=== PATIENT | female | born 1965 | race African-American/Black ===

== ENCOUNTER 2017-05-28 13:02 | Emergency (ER) | payer OTHER ==
[~2017-05-28] VITALS: Ht 160 cm; Wt 108.9 kg
[~2017-05-28 13:02] MED LIST: AMLODIPINE BESYL5 M1 PO; CYCLOBENZAPRINE10 M1 PO; GABAPENTIN300 M2 PO; LISINOPRIL30 M1 PO; MOBIC15 M1 PO; NEXIUM40 M1 PO; PERCOCET 5-3251 EACH PO
[2017-05-28 14:07] LABS: ABSOLUTE BASOPHIL COUNT 0.1 /CUMM (0.0-0.2); ABSOLUTE EOSINOPHIL COUNT 0.2 /CUMM (0.0-0.7); ABSOLUTE GRANULOCYTE CT 5.7 /CUMM (1.4-6.5); ABSOLUTE LYMPH COUNT 5.1 /CUMM (1.2-3.4); ABSOLUTE MONOCYTE COUNT 0.3 /CUMM (0.10-0.60); BASOPHIL % 0.9 % (0.0-2.0); EOSINOPHIL % 1.6 % (0-5); GRANULOCYTE % 49.9 % (42.2-75.2); HEMATOCRIT 41.2 % (37-47); MEAN CORPUSCULAR HGB 30.7 PG (27.0-31.0); MEAN CORPUSCULAR HGB CONC 32.6 G/DL (33.0-37.0); MEAN CORPUSCULAR VOLUME 94.1 FL (81.0-99.0); MEAN PLATELET VOLUME 7.8 FL (7.4-10.4); PLATELET COUNT 353 /CUMM (130-400); RED BLOOD CELL CT 4.38 /CUMM (4.20-5.40); WHITE BLOOD CELL COUNT 11.4 /CUMM (4.8-10.8)
--- NOTE | 2017-05-28 14:19 | ED GENERAL ADULT ---
History of Present Illness General Chief Complaint: General Adult Stated Complaint: "PAIN IN MY WHOLE BODY" X5 DAYS Source: patient Exam Limitations: no limitations Vital Signs & Intake/Output Vital Signs & Intake/Output Vital Signs Date Time Temp Pulse Resp B/P B/P Pulse O2 O2 Flow FiO2 Mean Ox Delivery Rate 05/28 1712 97.8 88 18 159/86 96 Room Air 05/28 1500 98.0 88 20 139/68 98 Room Air 05/28 1314 94 20 132/84 97 Room Air Allergies Coded Allergies: Sulfa (Sulfonamide Antibiotics) (RASH 03/20/17) ciprofloxacin (From CIPRO) (UNKNOWN 03/20/17) clarithromycin (UNKNOWN 03/20/17) erythromycin base (RASH 03/20/17) promethazine (VOMITING 03/20/17) Reconcile Medications Amlodipine Besylate 5 MG TABLET 1 TAB PO DAILY HEART (Reported) Cyclobenzaprine HCl 10 MG TABLET 1 TAB PO QPM PRN muscle spasm Esomeprazole (Nexium) 40 MG CAPSULE.DR 1 CAP PO DAILY GI (Reported) Gabapentin 300 MG CAPSULE 1 CAP PO TID UNKNOWN (Reported) Ibuprofen 800 MG TABLET 1 TAB PO TID PRN pain Ibuprofen 800 MG TABLET 1 TAB PO TID PRN PAIN Lisinopril 30 MG TABLET 1 TAB PO DAILY HEART (Reported) Meloxicam (Mobic) 15 MG TABLET 1 TAB PO DAILY PRN pain Oxycodone HCl/Acetaminophen (Percocet 5-325 MG Tablet) 5 MG-325 MG TABLET 1 TAB PO 4 TIMES/DAY PRN pain Oxycodone HCl/Acetaminophen (Percocet 5-325 MG Tablet) 5 MG-325 MG TABLET 1 TAB PO 4 TIMES/DAY PRN PAIN Oxycodone HCl/Acetaminophen (Percocet 5-325 MG Tablet) 5 MG-325 MG TABLET 1 TAB PO BID PRN pain Triage Note: PT TO ED C/O CHEST PAIN RADIATING TO BACK X 6 DAYS. WAS INTERMITTENT, BUT NOW CONSTANT. DENIES N/V/D. TO EKG [facility]. Triage Nurses Notes Reviewed? yes Onset: Abrupt Duration: week(s): (1), constant, continues in ED, getting worse Timing: recent history Injury Environment: home Severity: moderate, severe Severity Numbers: 9 No Modifying Factors: none Associated Symptoms: back pain, chest pain LMP (ages 10-50): unknown : No Patient currently breastfeeds: No HPI: 51-year-old female has medical history of chronic BACK pain presents for evaluation of chest pain and back pain. Patient states symptoms started about one week ago and have been getting worse. The pain is located diffusely in her chest and bilateral shoulders and radiates to her entire back. The pain is worse with movement or laying flat on her back. There was no trauma or known trigger event. The pain has gradually gotten worse. She's been taking Tylenol without any improvement. Patient states she has had this on several occasions in the past but usually not this bad. No shortness of breath, numbness, tingling, abdominal pain, nausea, vomiting, diarrhea, fevers, coughing, hemoptysis, lower extremity edema. No recent surgeries or traumas. No history of DVT/PE. (Steven Mancuso) Past History Travel History Traveled to [place] past 21 day No Medical History Any Pertinent Medical History? 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 No (Steven Mancuso) Review of Systems Review of Systems Constitutional: Reports: no symptoms. EENTM: Reports: no symptoms. Respiratory: Reports: no symptoms. Cardiovascular: Reports: chest pain. GI: Reports: no symptoms. Genitourinary: Reports: no symptoms. Musculoskeletal: Reports: see HPI, back pain, muscle pain, muscle stiffness. Skin: Reports: no symptoms. Neurological/Psychological: Reports: no symptoms. Hematologic/Endocrine: Reports: no symptoms. Immunologic/Allergic: Reports: no symptoms. All Other Systems: Reviewed and Negative (Steven Mancuso) Physical Exam Physical Exam General Appearance: well developed/nourished, alert, awake, moderate distress Head: atraumatic, normal appearance Eyes: Bilateral: normal appearance, PERRL, EOMI. Ears, Nose, Throat: normal pharynx, normal ENT inspection, hearing grossly normal Neck: normal inspection, supple, full range of motion Respiratory: normal breath sounds, no respiratory distress, lungs clear, CHEST WALL IS DIFFUSELY TENDER TO PALPATION. nO BRUISING SWELLING OR ABRASIONS Cardiovascular: regular rate/rhythm, normal peripheral pulses Peripheral Pulses: 2+ radial (R), 2+ radial (L) Gastrointestinal: normal bowel sounds, soft, non-tender, no organomegaly Back: normal inspection, normal range of motion, vertebral tenderness, THORACIC AND LUMBAR SPINE AND PARASPINOUS MUSCLES TENDER TO PALPATION BILATERALLY. nO STEP-OFFS OR DEFORMITIES. nO BRUISING SWELLING OR ABRASIONS. nO RASHES Extremities: normal inspection, normal range of motion, no edema, PAIN WITH RANGE OF MOTION OF THE BILATERAL UPPER EXTREMITIES. nO JOINT SWELLING OF TRAUMA. NO LOWER EXTREMITY EDEMA Core Measures ACS in differential dx? No CVA/TIA Diagnosis: No Sepsis Present: No Sepsis Focused Exam Completed? No (Carlos MELCHOR,Steven) Progress Differential Diagnoses I considered the following diagnoses in my evaluation of the patient: [Muscle spasm, osteoarthritis, acute on chronic low back pain, aortic dissection, pancreatitis, peptic ulcer disease, fracture, compression fracture] Plan of Care: Orders Procedure Date/time Status Add-on Test (ER Only) 05/28 1422 Active LIPASE 05/28 1325 Complete TROPONIN LEVEL 05/28 1324 Complete D-DIMER 05/28 1324 Complete COMPREHENSIVE METABOLIC PANEL 05/28 1324 Complete CBC WITHOUT DIFFERENTIAL 05/28 1324 Complete EKG 05/28 1316 Active Laboratory Tests 05/28/17 1400: Lipase 99 05/28/17 1400: Anion Gap 14, Estimated GFR > 60, BUN/Creatinine Ratio 12.2, Glucose 98, Calcium 9.3, Total Bilirubin 0.2, AST 22, ALT 31, Alkaline Phosphatase 115, Troponin I < 0.01, Total Protein 8.1, Albumin 4.4, Globulin 3.7, Albumin/Globulin Ratio 1.2, CBC w Diff MAN DIFF ORDERED, RBC 4.38, MCV 94.1, MCH 30.7, MCHC 32.6 L, RDW 14.0, MPV 7.8, Gran % 49.9, Lymphocytes % 44.9, Monocytes % 2.7, Eosinophils % 1.6, Basophils % 0.9, Absolute Granulocytes 5.7, Absolute Lymphocytes 5.1 H, Absolute Monocytes 0.3, Absolute Eosinophils 0.2, Absolute Basophils 0.1, Normocytic RBCs VERIFIED, Normochromic RBCs VERIFIED 05/28/17 1324: D-Dimer High Sensitivty < 200 Microbiology 05/28 1310 NASOPHARYN: Influenza Virus A & B Rapid Smear - CAN Cancelled: Cancelled via OE: Per MD Decision Patient seen and evaluated. She is reporting chest pain radiating to her back. Pain is very reproducible with range of motion and palpation of the chest and back. Patient states she has had this before in the past. She appears to be significantly uncomfortable unable to lay flat on her back. She has equal pulses bilaterally. She is not anticoagulated. We'll check basic labs and a CTA of the chest to rule out dissection and PE. Patient medicated with Toradol and Percocet here. CTA is negative. Patient is feeling much better after medications. She is able to lay flat on her back and walk to the bathroom without difficulty. Blood work does not show any significant acute findings. EKG is stable troponin and d- dimer negative. Treated for musculoskeletal back and chest pain with Percocet and ibuprofen and Tylenol. Advised rest and avoid excessive physical activity or lifting or bending. Patient can follow-up with primary care as soon as possible. Discussed return precautions patient is nontoxic-appearing and agrees the plan Diagnostic Imaging: Viewed by Me: CT Scan. Discussed w/RAD: CT Scan. Radiology Impression: PATIENT: NEPTALI MINOR PRESENT AGE: 51 PATIENT ACCOUNT NO: [id number] : 63 LOCATION: [facility] ORDERING PHYSICIAN: Steven MELCHOR SERVICE DATE: 05/28/17958 EXAM TYPE: CAT - CTA CHEST-AORTIC DISSECTION EXAMINATION: CT ANGIOGRAM CHEST CLINICAL INFORMATION: Chest pain radiating to back. COMPARISON: Chest radiographs dated 03/20/2017. TECHNIQUE: Multiple axial images were obtained through the chest after the administration of 120 mL of intravenous Optiray 350. Sagittal and coronal reformatted images are submitted. DLP: 1608.84 mGy-cm. FINDINGS: VASCULAR: 1. Ascending thoracic aorta: Normal. No aneurysm or dissection seen. 2. Thoracic aortic arch: Normal. No aneurysm or dissection seen. 3. Descending thoracic aorta: Normal. No aneurysm or dissection seen. 4. Mesenteric arteries: The celiac and superior mesenteric artery origins are normal. NON-VASCULAR: LUNGS: The lungs are clear with no evidence of inflammation or nodules. MEDIASTINUM: The mediastinum is normal. Central vascular structures are unremarkable. No hilar or mediastinal lymphadenopathy. PERICARDIUM/PLEURA: There is no significant effusion. No pleural mass or thickening. CHEST WALL/AXILLA: Unremarkable. UPPER ABDOMEN: There is hepatic steatosis. The adrenal glands are unremarkable. OSSEOUS STRUCTURES: Unremarkable. IMPRESSION: 1. No thoracic aortic aneurysm or dissection is seen. 2. The lungs appear clear. 3. No sizable mediastinal or hilar adenopathy is seen. 4. There is hepatic steatosis. DICTATED BY: Wesley Bautista MD DATE/TIME DICTATED:05/28/171614 SECURITY SCREENER: BLANK DATE/TIME TRANSCRIBED:05/28/171614 Initial ED EKG: normal sinus rhythm, LEFT ATRIAL ABN, NO ST OR T WAVE CHANGES (Steven Mancuso) Departure Departure Disposition: HOME OR SELF CARE Condition: Stable Clinical Impression Primary Impression: Thoracic back pain Qualifiers: Chronicity: acute Back pain laterality: bilateral Qualified Code: M54.6 - Pain in thoracic spine Referrals: Tanja KERNS,Jovani Rolon MD,Antolin (PCP/Family) Additional Instructions: Rest, avoid heavy lifting bending or excessive physical activity. Use ibuprofen 800 mg every 8 hours with food as needed for pain. Percocet for severe pain only this may cause drowsiness. Make a follow-up appointment with your primary care doctor and provided orthopedic doctor Jovani Agrawal MD as soon as possible. Monitor symptoms return with any concerns. Departure Forms: Customer Survey General Discharge Information Prescriptions: Current Visit Scripts Oxycodone HCl/Acetaminophen (Percocet 5-325 MG Tablet) 1 TAB PO 4 TIMES/DAY PRN pain #10 TAB Ibuprofen 1 TAB PO TID PRN pain #30 TAB Oxycodone HCl/Acetaminophen (Percocet 5-325 MG Tablet) 1 TAB PO 4 TIMES/DAY PRN PAIN #10 TAB Ibuprofen 1 TAB PO TID PRN PAIN #30 TAB (Steven Mancuso) PA/LAND ACQUISITION ANALYST Co-Sign Statement Statement: ED Attending supervision documentation- I saw and evaluated the patient. I have also reviewed all the pertinent lab results and diagnostic results. I agree with the findings and the plan of care as documented in the PA's/LAND ACQUISITION ANALYST's documentation. x I have reviewed the ED Record and agree with the PA's/LAND ACQUISITION ANALYST's documentation. [] Additions or exceptions (if any) to the PAs/LAND ACQUISITION ANALYST's note and plan are summarized below: [] (Torrie KERNS,Donte) Critical Care Note Critical Care Note Critical Care Time: non-applicable (Steven Mancuso)
--- NOTE | 2017-05-28 16:25 | CT SCAN REPORT ---
EXAMINATION: CT ANGIOGRAM CHEST CLINICAL INFORMATION: Chest pain radiating to back. COMPARISON: Chest radiographs dated 03/20/2017. TECHNIQUE: Multiple axial images were obtained through the chest after the administration of 120 mL of intravenous Optiray 350. Sagittal and coronal reformatted images are submitted. DLP: 1608.84 mGy-cm. FINDINGS: VASCULAR: 1. Ascending thoracic aorta: Normal. No aneurysm or dissection seen. 2. Thoracic aortic arch: Normal. No aneurysm or dissection seen. 3. Descending thoracic aorta: Normal. No aneurysm or dissection seen. 4. Mesenteric arteries: The celiac and superior mesenteric artery origins are normal. NON-VASCULAR: LUNGS: The lungs are clear with no evidence of inflammation or nodules. MEDIASTINUM: The mediastinum is normal. Central vascular structures are unremarkable. No hilar or mediastinal lymphadenopathy. PERICARDIUM/PLEURA: There is no significant effusion. No pleural mass or thickening. CHEST WALL/AXILLA: Unremarkable. UPPER ABDOMEN: There is hepatic steatosis. The adrenal glands are unremarkable. OSSEOUS STRUCTURES: Unremarkable. IMPRESSION: 1. No thoracic aortic aneurysm or dissection is seen. 2. The lungs appear clear. 3. No sizable mediastinal or hilar adenopathy is seen. 4. There is hepatic steatosis.
[2017-05-28] MEDS ORDERED: IBUPROFEN800 M1 PO ×2 (17:05→17:41)
[2017-05-28] MEDS ORDERED: PERCOCET 5-3251 EACH PO ×2 (17:05→17:41)
[2017-05-28 17:12] VITALS: BP 159/86
== END 2017-05-28 17:16 ==
LOC: ERH 13:02
PROVIDERS: Physician Assistant Medical
DX: M54.6 Pain in thoracic spine (principal)
CPT/HCPCS: 87804; 87804-59; 93005; 93010; 96372; J1885

== ENCOUNTER 2017-08-09 11:34 | Emergency (ER) | payer OTHER ==
[~2017-08-09] VITALS: Ht 160 cm; Wt 109.8 kg
[~2017-08-09 11:34] MED LIST changes: +IBUPROFEN800 M1 PO
[2017-08-09 16:16] VITALS: BP 131/72
--- NOTE | 2017-08-09 16:55 | ED GENERAL ADULT ---
History of Present Illness General Chief Complaint: Neck/Upper Back Pain/Injury Stated Complaint: NECK PAIN RADIATES DOWN BACK/SPINE TO LEGS Source: patient, family, old records Exam Limitations: no limitations Vital Signs & Intake/Output Vital Signs & Intake/Output Vital Signs Date Time Temp Pulse Resp B/P B/P Pulse O2 O2 Flow FiO2 Mean Ox Delivery Rate 08/09 1616 97.7 102 18 131/72 99 Room Air 08/09 1201 97.7 92 20 123/84 97 Room Air Allergies Coded Allergies: Sulfa (Sulfonamide Antibiotics) (RASH 03/20/17) ciprofloxacin (From CIPRO) (UNKNOWN 03/20/17) clarithromycin (UNKNOWN 03/20/17) erythromycin base (RASH 03/20/17) promethazine (VOMITING 03/20/17) Reconcile Medications Amlodipine Besylate 5 MG TABLET 1 TAB PO DAILY HEART (Reported) Cyclobenzaprine HCl 10 MG TABLET 1 TAB PO TID SPASMS Cyclobenzaprine HCl 5 MG TABLET 1 TAB PO TIDPRN PRN pain Cyclobenzaprine HCl 10 MG TABLET 1 TAB PO QPM PRN muscle spasm Esomeprazole (Nexium) 40 MG CAPSULE.DR 1 CAP PO DAILY GI (Reported) Gabapentin 300 MG CAPSULE 1 CAP PO TID UNKNOWN (Reported) Ibuprofen 800 MG TABLET 1 TAB PO TID PRN pain Ibuprofen 800 MG TABLET 1 TAB PO TID PRN PAIN Lisinopril 30 MG TABLET 1 TAB PO DAILY HEART (Reported) Meloxicam (Mobic) 15 MG TABLET 1 TAB PO DAILY PAIN Meloxicam (Mobic) 15 MG TABLET 1 TAB PO DAILY pain Meloxicam (Mobic) 15 MG TABLET 1 TAB PO DAILY PRN pain Oxycodone HCl/Acetaminophen (Percocet 5-325 MG Tablet) 5 MG-325 MG TABLET 1 TAB PO 4 TIMES/DAY PRN pain Oxycodone HCl/Acetaminophen (Percocet 5-325 MG Tablet) 5 MG-325 MG TABLET 1 TAB PO 4 TIMES/DAY PRN PAIN Oxycodone HCl/Acetaminophen (Percocet 5-325 MG Tablet) 5 MG-325 MG TABLET 1-2 TAB PO BID PAIN Oxycodone HCl/Acetaminophen (Percocet 5-325 MG Tablet) 5 MG-325 MG TABLET 1 TAB PO BID PRN pain Oxycodone HCl/Acetaminophen (Percocet 5-325 MG Tablet) 5 MG-325 MG TABLET 1 TAB PO BID PRN pain Triage Note: PT STATES SHE STARTED WITH NECK PAIN AT 0300 THAT RUNS DOWN HER CHEST, SPINE AND INTO HER LEGS. STATES SHE WAS SEEN HERE BEFORE FOR SAME PROBLEM AND IT WAS SUGGESTED SHE SEE A SPECIALIST BUT SHE CAN'T FIND ONE THAT TAKES HER INSURANCE Triage Nurses Notes Reviewed? yes Onset: Abrupt Duration: day(s): (1), constant Timing: recent history Injury Environment: home Severity: moderate Severity Numbers: 6 No Modifying Factors: none Associated Symptoms: denies HPI: 51-year-old female has medical history of chronic back pain presents for evaluation of neck pain radiating down her back into her arms and legs since last night. She reports history of similar sx in the past and is waiting for her pmd to referr to ortho at [facility] [facility]. she states she normally comes here for a shot of toradol and is given scripts for mobic, flexeril and percoect. No shortness of breath, cp numbness, tingling, abdominal pain, nausea, vomiting, diarrhea, fevers, coughing, hemoptysis, lower extremity edema. No recent surgeries or traumas. No history of DVT/PE. she has not taken anythign for her sx. Past History Travel History Traveled to [place] past 21 day No Medical History Any Pertinent Medical History? 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 No Review of Systems Review of Systems Constitutional: Reports: see HPI. Comments Review of systems: See HPI, All other systems negative. Constitutional, no chills no fever, HEENT: no sore throat no congestion Cardiovascular: No chest pain Skin: no rashes, no change in skin Respiratory: No dyspnea no cough no sputum GI: No nausea no vomiting, no diarrhea Muscle skeletal: chronic back pain, chronic neck pain, Neurologic: , no headache Psych: No stress Heme/endocrine: No bruising no bleeding Immunology: No lymphadenopathy Physical Exam Physical Exam General Appearance: well developed/nourished, no apparent distress, alert Comments: Well-developed well-nourished person in no acute distress HEENT: Normal EENT exam; PERRL, EOMI, no nystagmus. HEAD is atraumatic. moist mucous membranes. Neck: Supple, no midline tenderness bilateral paracervical tenderness to palpation normal range of motion without pain or tenderness Back: Nontender, no CVA tenderness. Full range of motion Cardiovascular: Regular rate and rhythms no murmurs Respiratory: Chest nontender.There were no bony deformities, no asymmetry. No respiratory distress. Patient speaking in full complete sentences. Breath sounds clear to auscultation bilaterally: NO W/R/R Abdomen: Soft, nontender nondistended Extremity: No edema, full range of motion of extremities, normal and equal pulses bilaterally, 5 out of 5 strength noted to bilateral upper and lower extremities Neuro: Alert oriented x3, motor sensory normal, cranial nerves II through XII grossly intact. There were no obvious focal neurologic abnormalities. Skin: No appreciable rash on exposed skin, skin is warm and dry. Psych: Mood and affect is normal, memory and judgment is normal. Core Measures ACS in differential dx? No CVA/TIA Diagnosis: No Sepsis Present: No Sepsis Focused Exam Completed? No Progress Differential Diagnoses I considered the following diagnoses in my evaluation of the patient: chronic pain, neuropathy, electrolyte abnormality Plan of Care: Orders Procedure Date/time Status EKG 08/09 1202 Active pt has been seen numerous times in the past for the same- pt declining labs, reports improvement in sx in past with im toradol. i d/w her plan of care and need for follow up with pmd tomorrow. reports she normally receives po percocet, flexeril, and mobic in the past with improvement as well. return precautions were dsicussed at length. she feels comfortable with plan and dc at this time. Initial ED EKG: normal intervals, normal p-waves, normal QRS complex, normal sinus rhythm Prior EKG: unchanged Departure Departure Time of Disposition: 1705 Disposition: HOME OR SELF CARE Condition: Stable Clinical Impression Primary Impression: Chronic pain Referrals: Miquel KERNS,Petra Rolon MD,Antolin (PCP/Family) Additional Instructions: Follow up with your pmd or primary affiliated with [facility]. percocet for breakthrough pain-this is a narcotic and highly addictive. mobic and flexeril as directed. return with any concerns these were sent to [facility] Departure Forms: Customer Survey General Discharge Information Prescriptions: Current Visit Scripts Meloxicam (Mobic) 1 TAB PO DAILY #30 TAB Cyclobenzaprine HCl 1 TAB PO TIDPRN PRN pain #12 TAB Oxycodone HCl/Acetaminophen (Percocet 5-325 MG Tablet) 1 TAB PO BID PRN pain #10 TAB Critical Care Note Critical Care Note Critical Care Time: non-applicable
[2017-08-09] MEDS ORDERED: CYCLOBENZAPRINE5 M2 PO (17:06)
[2017-08-09] MEDS ORDERED: MOBIC15 M1 PO (17:06)
[2017-08-09] MEDS ORDERED: PERCOCET 5-3251 EACH PO (17:06)
== END 2017-08-09 17:16 ==
LOC: ERH 11:34
DX: G89.29 Other chronic pain (principal)
CPT/HCPCS: 93005; 93010; 96372; J1885